=== PATIENT | female | born 1965 | race Caucasian/White ===

== ENCOUNTER 2017-07-31 15:19 | Emergency (ER) | payer OTHER ==
[~2017-07-31] VITALS: Ht 170.2 cm; Wt 191.8 kg
[2017-07-31] MEDS ORDERED: ULTRAM50 MG PO (17:18)
[2017-07-31] MEDS ORDERED: PEN-VEE K,VEET500 MG PO (17:18)
[2017-07-31] MEDS ORDERED: PERIDEX473 ML MM (17:19)
[2017-07-31 17:38] VITALS: BP 187/93
== END 2017-07-31 17:49 | disposition home or self-care (01) ==
LOC: EME 15:19
DX: K04.7 Periapical abscess without sinus (principal); Z98.818 Other dental procedure status; E66.9 Obesity, unspecified; Z87.891 Personal history of nicotine dependence; K21.9 Gastro-esophageal reflux disease without esophagitis; F32.9 Major depressive disorder, single episode, unspecified; E78.5 Hyperlipidemia, unspecified; J44.9 Chronic obstructive pulmonary disease, unspecified; I89.0 Lymphedema, not elsewhere classified
CPT/HCPCS: 99281; 99284

== ENCOUNTER → 2018-05-03 | Outpatient (CLI) | payer OTHER ==
[~2018-05-03] VITALS: Ht 167.6 cm; Wt 204.5 kg
[~2018-05-03] MED LIST: LIPITOR40 MG PO; LORCET 5-325 M1 EACH PO; LYRICA75 MG PO; MOBIC7.5 MG PO; OMEPRAZOLE40 M1 PO; PEN-VEE K,VEET500 MG PO; PERIDEX473 ML MM; PROZAC20 MG PO; SINGULAIR10 MG PO; TRELEGY ELLIPT1 EACH IH; ULTRAM50 MG PO; VENTOLIN HFA18 GM IH; ZYBAN 150 MG T150 MG PO
== END | disposition home or self-care (01) ==
LOC: AMB 09:26
PROC: 0DBM8ZX Excision of Descending Colon, Via Natural or Artificial Opening Endoscopic, Diagnostic (ICD-10-PCS; principal; 2018-05-03)
DX: Z12.11 Encounter for screening for malignant neoplasm of colon (principal); Z80.0 Family history of malignant neoplasm of digestive organs; K57.30 Diverticulosis of large intestine without perforation or abscess without bleeding; D12.4 Benign neoplasm of descending colon; E66.01 Morbid (severe) obesity due to excess calories; J44.9 Chronic obstructive pulmonary disease, unspecified; E78.5 Hyperlipidemia, unspecified; Z68.44 Body mass index [BMI] 60.0-69.9, adult; Z82.49 Family history of ischemic heart disease and other diseases of the circulatory system; Z83.3 Family history of diabetes mellitus; Z84.1 Family history of disorders of kidney and ureter; Z87.891 Personal history of nicotine dependence
CPT/HCPCS: J2405; J2704; J2765